=== PATIENT | male | born 1970 | race Caucasian/White ===

== ENCOUNTER → 2024-02-22 14:31 | Outpatient (REF) | payer BC, SELFPAY | LOC: HWRAD 14:31 | PROVIDERS: ATTENDING PHYSICIAN Family Medicine | DX: M79.662 Pain in left lower leg (principal); M79.661 Pain in right lower leg | CPT/HCPCS: 93970 ==

== ENCOUNTER → 2024-08-18 14:26 | Outpatient (REF) | payer BC, SELFPAY | LOC: HWEVLT 14:26 | PROVIDERS: ATTENDING PHYSICIAN Radiology Vascular & Interventional Radiology | DX: I83.893 Varicose veins of bilateral lower extremities with other complications (principal) | CPT/HCPCS: 93970 ==

== ENCOUNTER 2024-09-15 16:58 | Emergency (ER) | payer BC, SELFPAY ==
[2024-09-15 17:00] VITALS: BP 164/84
[2024-09-15 17:29] VITALS: BP 165/79
--- NOTE | 2024-09-15 17:42 | ED.GENMED ---
History of Present Illness
General
Chief Complaint: Abdominal Symptoms
Source: patient
Exam Limitations: none
Time Seen by Provider: 09/15/24 17:25
Nursing documentation reviewed up to this point in time: agreed with
History of Present Illness
History of Present Illness:
54-year-old male presents with abdominal pain fairly severe yesterday evening with nausea vomiting x 1 mid abdomen, takes Ozempic he is diabetic he has had hernia repair
He has had posterior circulation stroke part of the workup was found to have an ascending aortic aneurysm which was surgically repaired no aneurysms in his abdomen apparently per the patient has had a colonoscopy--did review that note he had some
sigmoid tics, he still is his gallbladder, has had no changes dose of his Ozempic has lost about 50 pounds
Past History
Past History
ED Past Medical History: CVA (Cerebellar stroke August 2017 due to left vertebral artery narrowing), HTN, NIDDM, Psychiatric (major depression) and Other (pancreatitis)
ED Past Surgical History: Cardiac (Ascending Aortic Aneurysm Repair (07/[address] Bo at [facility] [place])) and Other (Left inguinal herniorrhaphy deviated septum repair right shoulder repair)
Social History
Tobacco: Non-smoker
Alcohol: None
Drug: None
Living: with family
Employment: Employed
Family History
Family History: Other (reviewed in non-contributory)
Phy Exam
Physical Exam
Physical Exam:
Physical Exam
General: no apparent distress, not acutely ill
Neck: No jaundice
Heart: s1/s2 regular rate and rhythm, no murmur. equal radial pulses.
Lungs: no acute respiratory distress. clear bilaterally
Abdomen:mild diffuse tenderness no guarding or rebound
Neuro: alert and oriented. no focal neurological deficits
Skin: no rash
Psychiatric: well kept. interactive and cooperative
Extremities: no edema.
Course
Orders/Labs/Results
Orders:
Orders
09/15/24 17:41
CT Abd/Pel (IV only)-DH only Urgent
Comment:
Reason For Exam: pain
US Abdomen Complete/Upper Urgent
Comment:
Reason For Exam: pain
09/15/24 17:42
Electrocardiogram (*1) Urgent
Reason for Study: Abdominal Pain
EKG- Treatment ONCE
09/15/24 17:46
Complete Blood Count/With Diff Urgent
Comprehensive Metabolic Panel Urgent
Lipase Urgent
Troponin I Urgent
09/15/24 19:30
Urinalysis Reflex To Culture Urgent
Date Specimen was Collected: 09/15/24
Time Specimen was Collected: 17:46
09/15/24 20:38
Ondansetron Injectable [Zofran] 4 mg IV NOW STA
Pantoprazole [Protonix IV] 40 mg IV NOW STA
Abnormal Lab Results
09/15/24
17:46
Monocytes % 9.5 H %
(1.7-9.3)
Alkaline Phosphatase 29 L U/L
(38-126)
09/15/24 17:46
09/15/24 17:46
Vital Signs
Initial and Last Documented VS:
Initial Vital Signs
Temp Pulse Resp BP Pulse Ox
97.6 F 66 18 164/84 99
09/15/24 17:00 09/15/24 17:00 09/15/24 17:00 09/15/24 17:00 09/15/24 17:00
Last Documented Vital Signs
Temp Pulse Resp BP Pulse Ox
97.6 F 80 15 165/79 97
09/15/24 17:00 09/15/24 17:30 09/15/24 17:30 09/15/24 17:29 09/15/24 17:30
MDM/Problems Addressed
Differential Diagnosis Includes:
Infectious pancreatitis biliary colic obstruction colitis diverticulitis nonspecific abdominal pain doubt ACS doubt AAA
MDM/Problems Addressed:
Abdominal
Chronic conditions affecting care: DM and Previous abdomnial surgery
Acute Exacerbation and/or Progression of Chronic Illness: DM and Previous abdomnial surgery
*Radiology
Radiology exam reviewed: radiology read reviewed
*Pulse Oximetry
Patient hypoxic: no
*EKG
Interpreted by ED Provider?: Yes
Interpretation: abnormal
Comparison EKG: no comparison EKG present
Heart Rate: 78
Rate: normal
Rhythm: sinus
Ischemia: non-specific ST changes
*Mononitrotoluene Operator Interpretation
Rate: normal
Interpretation: normal
Heart Rate: 78
Rhythm: sinus
*Critical Care Note
Total Time (30-74mins, 75-104mins- exclusive of procedures): Not Applicable
Update Note
Update Note:
Update labs are noted EKG noted ultrasound noted CT scan noted
Patient comfortable, CCS some mild nausea no vomiting abdomen is soft nontender no guarding or rebound
ED Attending Note
-
Portions of this chart may have been created with voice recognition software.� Occasional wrong word or��sound alike� substitutions may have occurred due to the inherent limitations of voice recognition software.
Discharge Plan
Departure
Patient Disposition: Home (Routine Discharge)
Date of Disposition: 09/15/24
Time of Disposition: 20:39
Patient with high blood pressure during this ER visit?: No
Condition: Good
Covid-19: Not Applicable
Discharge Problem:
Abdominal pain
Instructions: Abdominal Pain
Prescriptions:
No Action
metformin 500 MG tablet
1,000 mg PO DAILY
alprazolam 0.25 MG tablet
0.25 mg PO Q8HPRN PRN (Reason: anxiety)
multivitamin 1 EACH tablet
1 ea PO DAILY
cyclobenzaprine 10 MG tablet
10 mg PO TIDPRN PRN (Reason: pinched nerve)
clopidogrel 75 MG tablet
75 mg PO DAILY
simvastatin 20 MG tablet
20 mg PO DAILY
losartan 25 MG tablet
50 mg PO BID
escitalopram oxalate 20 MG tablet
20 mg PO DAILY
prednisone 50 mg tablet
50 mg PO DAILY Qty: 5 0RF
Referrals:
Kyle Pierce MD [Family Provider] -
Interventions
Interventions:
*Risk Screen - Suicide Last Done: 09/15/24 17:02
*General Assessment Last Done: 09/15/24 17:02
*Neglect/Abuse Screening Last Done: 09/15/24 17:02
ED- Fall Risk Assessment Last Done: 09/15/24 17:27
*ED COVID-19 Vaccine History Last Done: 09/15/24 17:27
BA-Qmzuyp-Tqmfbcxelj Assessment Last Done: 09/15/24 19:25
Discharge Date and Time
Print Language: ANGUILLAN
[2024-09-15 18:00] VITALS: BP 135/79
[2024-09-15 18:03] LABS: % Basophils 0.6 % (0-2); % Eosinophils 1.6 % (0-6); % Immature Granulocytes 0.2 % (0-0.5); % Lymphocytes 26.3 % (20.5-51.1); % Monocytes 9.5 % (1.7-9.3); % Neutrophils 61.8 % (42.2-75.2); Absolute Eosinophils 0.1 10^3/uL (0-0.7); Absolute Lymphocytes 1.7 10^3/uL (1.2-3.4); Absolute Monocytes 0.6 10^3/uL (0.1-0.6); Absolute Neutrophils 3.9 10^3/uL (1.4-6.5); Hematocrit 40.4 % (39.0-52.0); Hemoglobin 14.5 g/dL (13.0-18.0); Mean Corp Hgb Conc. 35.9 g/dL (33.0-37.0); Mean Corpuscular Hgb 29.8 pg (27.0-31.0); Mean Corpuscular Volume 83.1 fL (80.0-94.0); Mean Platelet Volume 9.4 fL (7.4-10.4); Nucleated Red Blood Cells % 0 % (-); Platelet Count 234 10^3/uL (130-400); Red Blood Cell Count 4.86 10^6/uL (4.70-6.10); Red Cell Dist. Width 12.3 % (11.5-14.5); White Blood Cell Count 6.3 10^3/uL (4.8-10.8)
[2024-09-15 18:25] LABS: Troponin I < 0.012 ng/ml
[2024-09-15 18:45] LABS: ALT (SGPT) 25 U/L (0-50); AST (SGOT) 26 U/L (17-59); Albumin 4.4 g/dl (3.5-5.0); Alkaline Phosphatase 29 U/L (38-126); Blood Urea Nitrogen 10 mg/dl (9-20); Calcium 9.3 mg/dl (8.4-10.2); Carbon Dioxide 24 mmol/L (22-30); Chloride 101 mmol/L (98-107); Glucose 95 mg/dl (70-99); Lipase 40 U/L (23-300); Potassium 4.3 mmol/L (3.5-5.1); Sodium 137 mmol/L (135-145); Total Bilirubin 0.9 mg/dl (0.2-1.3); Total Protein 6.6 g/dl (6.3-8.2); eGFR > 60.00
[2024-09-15 19:38] LABS: Urine Albumin Negative (Neg - Trace); Urine Bilirubin Negative (Negative); Urine Character Clear (Clear); Urine Color Straw; Urine Glucose Negative (Negative); Urine Ketone Negative (Negative); Urine Leukocyte Negative (Negative); Urine Nitrite Negative (Negative); Urine Occult Blood Negative (Negative); Urine Urobilinogen Negative (Neg - 1+)
[2024-09-15 21:06] VITALS: BP 132/82
[2024-09-15] MEDS: ZOFRAN 4 MG IV (21:10)
[2024-09-15] MEDS: PROTONIX IV 40 MG IV (21:11)
[2024-09-15 21:30] VITALS: BP 132/82
== END 2024-09-15 21:30 | disposition home or self-care (01) ==
LOC: EMR 16:58
PROVIDERS: EMERGENCY PHYSICIAN Emergency Medicine; FAMILY PHYSICIAN Family Medicine
DX: R10.9 Unspecified abdominal pain (principal); E11.9 Type 2 diabetes mellitus without complications
CPT/HCPCS: 99285; 96374; 96375; 74177; 76700; 80053; 81003; 83690; 84484; 85025; 93005; Q9967

== ENCOUNTER → 2025-01-20 14:53 | Outpatient (REF) | payer BC, SELFPAY | LOC: RCS 14:53 | PROVIDERS: ATTENDING PHYSICIAN Internal Medicine Cardiovascular Disease; FAMILY PHYSICIAN Student in an Organized Health Care Education/Training Program | DX: I48.0 Paroxysmal atrial fibrillation (principal) | CPT/HCPCS: 93306 ==

== ENCOUNTER 2025-05-15 06:23 | Day surgery (SDC) | payer BC, SELFPAY ==
[2025-05-15 07:53] LABS: Glucose - Point of Care 94 mg/dl (70-99)
== END 2025-05-15 09:47 | disposition home or self-care (01) ==
LOC: GI 06:23
PROVIDERS: ATTENDING PHYSICIAN Internal Medicine Gastroenterology
DX: R13.10 Dysphagia, unspecified (principal); R12 Heartburn; K44.9 Diaphragmatic hernia without obstruction or gangrene; K31.89 Other diseases of stomach and duodenum
CPT/HCPCS: 43239; 88305; 82962; 88342